=== PATIENT | female | born 1950 | race Caucasian/White ===

== ENCOUNTER 2019-02-04 14:15 | Observation (INO) | payer MEDICARE, BC ==
[2019-02-04] MEDS ORDERED: Metoprolol Tartrate 50 MG TAB ONE (14:47)
[2019-02-04] MEDS ORDERED: Metoprolol Tartrate 5 MG/5 ML VIAL ONE (14:47)
[2019-02-04 14:58] LABS: #Basophils 0.1 thou/uL (0.0-0.2); #Lymphocytes 2.5 thou/uL (1.20-3.40); #Monocytes 0.7 thou/uL (0.11-0.59); %Basophils 0.8 % (0.0-1.0); %Eosinophils 0.5 % (0.0-10.0); %Lymphocytes 29.9 % (21.0-51.0); %Monocytes 8.4 % (0.0-10.0); %Neutrophils 60.4 % (42.0-75.0); Hemoglobin 14.4 g/dL (12.0-16.0); Mean Corpuscular HGB CONC 34.2 g/dL (32.0-36.0); Mean Corpuscular Hemoglobin 30.4 pg (27.0-31.0); Mean Corpuscular Volume 88.9 fL (78.0-98.0); Platelet Count 207 thou/uL (130-400); RBC Distribution Width 11.2 % (11.5-14.5); Red Blood Cell (RBC) Count 4.73 mill/uL (4.20-5.40); White Blood Cell (WBC) Count 8.3 thou/uL (4.8-10.8)
[2019-02-04 15:15] LABS: ALT (SGPT) 21 U/L (8-55); AST (SGOT) 21 U/L (5-34); Albumin 4.7 g/dL (3.4-4.8); Alkaline Phosphatase 47 U/L (40-150); Anion Gap 17 mmol/L (10-20); BUN (Urea Nitrogen) 18 mg/dL (9.8-20.1); Bilirubin, Total 0.5 mg/dL (0.2-1.2); Calc. Creatinine Clearance 0 mL/min (70-130); Calcium 10.5 mg/dL (7.8-10.44); Carbon Dioxide 21 mmol/L (23-31); Chloride 108 mmol/L (98-107); Estimated GFR-MDRD 68; Glucose 125 mg/dL (80-115); Lipase 91 U/L (8-78); Potassium 3.7 mmol/L (3.5-5.1); Protein, Total 7.7 g/dL (6.0-8.3); Sodium 142 mmol/L (136-145)
--- NOTE | 2019-02-04 15:33 | RAD ---
RADIOGRAPH CHEST 1 VIEW: 02/04/19 HISTORY: 68-year-old female with dyspnea. FINDINGS: There is no air space density, pulmonary edema, or pneumothorax. The lateral costophrenic angles are sharp. IMPRESSION: No acute pulmonary findings. jn [] POS: TPC
[2019-02-04 18:23] LABS: Troponin I Less than 0.010 ng/mL (< 0.028)
[2019-02-04 19:00] VITALS: BMI 24.2
[2019-02-04] MEDS ORDERED: Ondansetron PF 4 MG/2 ML Vial IVP PRN (20:34)
[2019-02-04] MEDS ORDERED: Acetaminophen 650 MG Suppository PR PRN (20:34)
[2019-02-04] MEDS ORDERED: Acetaminophen 325 MG TAB PO PRN (20:34)
[2019-02-04] MEDS ORDERED: Ondansetron ODT 4 MG TAB PO PRN (20:34)
[2019-02-04] MEDS ORDERED: Atorvastatin Calcium 20 MG TAB PO SCH (21:00)
[2019-02-04 21:40] LABS: Troponin I Less than 0.010 ng/mL (< 0.028)
[2019-02-05 07:03] LABS: #Eosinphils 0.1 thou/uL (0.0-0.7); #Lymphocytes 2.3 thou/uL (1.20-3.40); #Monocytes 0.7 thou/uL (0.11-0.59); #Neutrophils 4.2 thou/uL (1.40-6.50); %Basophils 0.3 % (0.0-1.0); %Lymphocytes 31.4 % (21.0-51.0); %Monocytes 9.2 % (0.0-10.0); %Neutrophils 58.1 % (42.0-75.0); Hemoglobin 13.3 g/dL (12.0-16.0); Mean Corpuscular Hemoglobin 30.9 pg (27.0-31.0); Mean Corpuscular Volume 91.1 fL (78.0-98.0); Mean Platelet Volume 6.8 fL (7.4-10.4); Platelet Count 181 thou/uL (130-400); RBC Distribution Width 11.5 % (11.5-14.5); Red Blood Cell (RBC) Count 4.31 mill/uL (4.20-5.40); White Blood Cell (WBC) Count 7.3 thou/uL (4.8-10.8)
[2019-02-05 07:24] LABS: Anion Gap 12 mmol/L (10-20); BUN (Urea Nitrogen) 13 mg/dL (9.8-20.1); Calc. Creatinine Clearance 71 mL/min (70-130); Calcium 9.7 mg/dL (7.8-10.44); Carbon Dioxide 25 mmol/L (23-31); Chloride 108 mmol/L (98-107); Estimated GFR-MDRD 77; Glucose 99 mg/dL (80-115); Potassium 3.7 mmol/L (3.5-5.1); Sodium 141 mmol/L (136-145)
[2019-02-05 08:14] VITALS: BP 119/56; TEMP 98
[2019-02-05] MEDS ORDERED: Enoxaparin Sodium 40 MG/0.4 ML SYRINGE SC SCH (09:00)
[2019-02-05] MEDS ORDERED: Flecainide 50 MG TAB PO SCH (09:00)
--- NOTE | 2019-02-05 11:33 | HP ---
CODE STATUS: Full code. TIME OF EVALUATION: 8:35 p.m. PRIMARY CARE PHYSICIAN: Taco Godinez MD CHIEF COMPLAINT: Palpitation. HISTORY OF PRESENT ILLNESS: This is a 68-year-old female patient with past medical history of atrial fibrillation with previous failed ablation. The patient followed by Dr. Cabrera. The patient came to the hospital after having an episode of palpitation with no clear triggers, no alleviating factors. The patient also have associated weakness and also shortness of breath and feeling lightheaded. She has been compliant with her medications. The symptoms started suddenly 1 hour prior to arrival to the ER. By the time of my examination, symptoms are disappeared. The patient is back to baseline. Symptoms were reported as moderate. REVIEW OF SYSTEMS: CONSTITUTIONAL: No fever, chills, or generalized weakness. RESPIRATORY: No cough, sputum production, or shortness of breath except associated with arrhythmia. CARDIOVASCULAR: The patient has no chest pain. The patient has palpitations. GASTROINTESTINAL: No nausea. No vomiting, diarrhea, or abdominal pain. MECHANICAL SYSTEMS CONTROL ENGINEER: No dizziness or headache. The patient was feeling lightheaded. GENITOURINARY: No burning on urination. EXTREMITIES: No leg swelling. All other systems were reviewed and negative except for the findings mentioned above. PAST MEDICAL HISTORY: Positive for AFib. PAST SURGICAL HISTORY: The patient has previous procedure ablation in 2010, sinus surgery, hysterectomy, tonsillectomy. ALLERGIES: CEPHALOSPORINS AND PENICILLIN AND SULFA. FAMILY HISTORY: Mother had CHF. No other significant medical history in the family. SOCIAL HISTORY: Reviewed and noncontributory for current presentation reported. MEDICATION: 1. Aspirin 81. 2. Flecainide. 3. Metoprolol. 4. Simvastatin. PHYSICAL EXAMINATION: VITAL SIGNS: On presentation, blood pressure 154/74 with heart rate 117, respiratory rate was 16, pain was 0/10, oxygen saturation was 100% on room air. GENERAL APPEARANCE: The patient is alert, oriented, not in acute distress. HEENT: Eyes, normal conjunctivae. Moist oral mucosa. Anicteric. NECK: No JVD. RESPIRATORY: Bilateral air entry. No rales. No wheezes. Symmetric expansion. CARDIOVASCULAR: Normal rate. Regular rhythm. No murmurs. No gallop. No edema. ABDOMEN: Soft. Normal bowel sounds. MUSCULOSKELETAL: Baseline range of motion and strength. No tenderness. SKIN: Warm, intact. No pallor. No rash. No redness. Peripheral pulses are present. Capillary refill seems to be intact. NEUROLOGIC: No evidence of any new focal weakness. Cranial nerves seems to be intact. PSYCHIATRIC: The patient is in good mood. No anxiety. Optimal judgment. LABORATORY DATA: EKG was reviewed. The patient has atrial fibrillation with RVR at the rate of 119, left axis, nonspecific ST and T-wave abnormalities. Chest x-ray was negative. Laboratory are reviewed. The patient has white count 8.3, hemoglobin 14.4, MCV 88.9, platelet count 207. Chemistry; sodium 142, potassium 3.7, chloride 108, carbon dioxide 21, anion gap 17, BUN 18, creatinine 0.8, GFR 68, glucose 125, calcium 10.5. LFTs were negative. Troponin was negative x3. Lipase 91. ASSESSMENT AND PLAN: The patient will be placed in the hospital with following medical problems. 1. Atrial fibrillation with rapid ventricular response, is controlled with Lopressor 5 mg IV, the patient will continue to be monitored on tele. Dr. Cabrera has been consulted. We will reconcile home medications and we will await for Cardiology recommendations. Further workup as per Cardiology recommendations. 2. Hyperlipidemia. Low-cholesterol diet is advised. Reconcile home medications. Continue atorvastatin. 3. Deep venous thrombosis prophylaxis. Job ID: [id number]
--- NOTE | 2019-02-05 17:27 | CON ---
DATE OF CONSULTATION: 02/05/2019 INDICATION FOR CONSULTATION: This is a 68-year-old female, who has history of atrial fibrillation in the past. Yesterday, she was out, and had lunch with her family, felt lightheaded and faint. She went home. She took her heart rate. She said her heart rate was anywhere between 110 to 140, was irregular. Blood pressure was 132/87 and she was presented to the emergency room. EKG there to me appears to be mainly sinus rhythm with PACs, no clear indication that this is atrial fibrillation, but frequent ectopy. There may have been atrial fibrillation when she arrived. She has had a history of atrial fibrillation in the past and takes flecainide as well as metoprolol. At this time, she is doing relatively well. She has had no further episodes of atrial fibrillation and remains in sinus rhythm and denies any complaints of chest pain or shortness of breath. She has been under increased stress recently as her has end-stage Parkinson disease. Her son has also recently moved back and has been working on a house. Otherwise, she denied any significant other complaints. No shortness of breath or dyspnea or lower extremity edema. PAST MEDICAL HISTORY: Significant for hysterectomy, sinus surgery, tonsillectomy, SVT ablation, and she has had a history of syncope in the past, hyperlipidemia, history of intermittent atrial fibrillation, SVT. ALLERGIES: NONE. MEDICATIONS: Prior to admission include; simvastatin 40 mg a day, aspirin 81 mg a day, and flecainide 50 mg once a day. She had previously been on twice a day, but we had decreased it down to once a day. We may need to increase it again to twice a day. Metoprolol 25 mg once a day. FAMILY HISTORY: Noncontributory. SOCIAL HISTORY: No significant alcohol or tobacco abuse. She still lives at home and takes care of her family. REVIEW OF SYSTEMS: A 12-point review of systems unremarkable except for what was noted in the history of present illness. PHYSICAL EXAMINATION: GENERAL: Reveals a well-developed, well-nourished female, who is in no acute distress. She is alert. She is oriented. VITAL SIGNS: Stable. Blood pressure is 119/56. She is afebrile. Heart rate is in the 60s and shows sinus rhythm, respiratory rate 15, and O2 saturation is 98%. HEENT: Shows the head to be normocephalic and atraumatic. NECK: Carotid pulses are present. There were no bruits. Thre is no JVD. Thyroid is not enlarged. Oral mucosa is pink and moist. CHEST: Clear to auscultation without rales, rhonchi, or wheezing. CARDIOVASCULAR: Exam reveals a regular rate and rhythm with normal S1 and S2. There is no S3 or S4. There were no significant murmurs, heaves, thrills, bruits, or rubs noted. ABDOMEN: Soft and nontender. Positive bowel sounds are present. No organomegaly or masses are noted. Femoral pulses are present. EXTREMITIES: No clubbing, cyanosis, or edema. Pedal pulses also present. NEUROLOGIC: She is fully intact with normal strength and normal tone. SKIN: Warm and dry. LABORATORY DATA: Shows WBC of 7.3, hemoglobin 13.3, and platelet count of 181,000. Her potassium was 3.7, chloride was 108, sodium was 141, and creatinine 0.75 with a BUN of 13. Her blood sugar was 129, now it has decreased down to 99. Cardiac enzymes are negative. Her BNP was 71. IMPRESSION: 1. Possible episode of atrial fibrillation, but not documented from what I can determine from the rhythm strips in the EKGs, she did have some PACs, she does have a history of SVT. I do not see this at this time, but she has been on flecainide for intermittent atrial fibrillation. I would suggest she increase her flecainide up to twice a day and continue taking her beta blockers as previously. Otherwise, I do not see any indication that we need to do any other significant further cardiac workup at this time. 2. History of SVT, which apparently is stable. I do not see any further episodes of supraventricular tachycardia. 3. Dyslipidemia. She will continue on her statin medications. I will see her back in the office in the next two to three months, but at this time, she can be from my perspective can be discharged to home. Job ID: [id number]
--- NOTE | 2019-02-06 05:23 | DIS ---
DATE OF ADMISSION: 02/04/2019 DATE OF DISCHARGE: 02/05/2019 CHIEF COMPLAINT ON ADMISSION: Palpitations, presyncope. DISCHARGE DIAGNOSES: 1. Presyncope and palpitations, likely secondary to paroxysmal atrial fibrillation, patient currently in sinus rhythm, CHADS-VASc equals 2. 2. Hypertension. HOSPITAL COURSE: The patient is a pleasant 68-year-old female with past medical history significant for paroxysmal atrial fibrillation managed by her primary digital marketer, Dr. Cabrera, currently on antiarrhythmic therapy with 50 mg of flecainide daily, who presented to the hospital after experiencing palpitations and near syncope at home. The patient had been in her usual state of health up until around noon yesterday. She had previously had a syncopal event about eight years ago secondary to atrial fibrillation with RVR, and so presented to the emergency room for further workup and treatment. On arrival, her EKG was irregular, however, appeared to be sinus arrhythmia with very brief episodes of atrial fibrillation. She was given IV Lopressor. She has maintained sinus rhythm throughout her overnight stay. She was seen in consultation with Dr. Cabrera this morning, who did increase her flecainide from 50 mg daily to 50 mg b.i.d. She will can also continue her Toprol. The patient feels well this morning. She has had no issues overnight. No chest pain or shortness of breath. No further palpitations or presyncope. She has ambulated without issue and is tolerating a full diet. Per Dr. Cabrera, the patient is cleared for discharge home today. DISCHARGE DISPOSITION: Home. DISCHARGE CONDITION: Stable. DISCHARGE INSTRUCTIONS AND FOLLOWUP: As mentioned, the patient will continue flecainide 50 mg b.i.d. along with baby aspirin and her Toprol. She will follow up with Dr. Cabrera in one month. She will continue to monitor her symptoms and return to the ER with any further chest pain, shortness of breath, or presyncope. She will be discharged home today in good condition. Care of this patient has been discussed with Dr. Cannon, who agrees with discharge as outlined above. Job ID: [id number] [id number]
== END 2019-02-05 11:44 | disposition home or self-care (01) ==
LOC: SCSER 14:15 → 2SW 18:56
PROVIDERS: ADMIT Internal Medicine; ATTEND Internal Medicine
DX: R00.2 Palpitations (principal); R55 Syncope and collapse; I48.0 Paroxysmal atrial fibrillation; E78.5 Hyperlipidemia, unspecified; I47.1 Supraventricular tachycardia; Z79.82 Long term (current) use of aspirin; Z79.899 Other long term (current) drug therapy; Z88.0 Allergy status to penicillin; Z88.1 Allergy status to other antibiotic agents; Z88.2 Allergy status to sulfonamides; Z98.890 Other specified postprocedural states
CPT/HCPCS: 71045; 80048; 80053; 83690; 83880; 84484 ×2; 85025 ×2; 93005; 96372; 96374; 99285; G0378 ×2; 36415; J1650